=== PATIENT | female | born 1965 | race Caucasian/White ===

== ENCOUNTER → 2016-07-01 | Outpatient (CLI) | payer MEDICAID ==
[~2016-07-01] MED LIST: AMLO5TAB PO; AMLODIPINE5 M1 PO; ASPIRIN 81MG TA81 MG PO; BACTRIM DS 8001 TAB PO; BISOPROLOL PO; DOLOBID 500MG500 MG PO; FLEXERIL5 MG PO; LASIX20 MG PO; LISINOPRIL HCTZ1 TAB PO; NADOLOL 20 MG T20 MG PO; ST. JOSEPH81 M1 PO; TRAZODONE HCL50 MG PO; ULTRAM50 MG PO; VITAMIN D31000 IU PO; [UNRECOGNIZED DRUG - OTHER] PO
== END ==
LOC: RT 10:44
DX: I10 Essential (primary) hypertension (principal); I25.10 Atherosclerotic heart disease of native coronary artery without angina pectoris; Z95.5 Presence of coronary angioplasty implant and graft; E78.5 Hyperlipidemia, unspecified; F17.290 Nicotine dependence, other tobacco product, uncomplicated

== ENCOUNTER → 2016-07-02 | Outpatient (CLI) | payer MEDICAID ==
--- NOTE | 2016-07-02 16:18 | RADIOLOGY REPORT PS360 ---
ECHO ADULT PROCEDURE: 2-D echo Doppler and M-mode INDICATIONS FOR THE TEST: Chest pain, COPD, shortness of breath history of syncope hyperlipidemia chronic tobacco use PATIENT INFORMATION HEIGHT: WEIGHT: GENDER: B/P:122/71 2-D/M-MODE INTERPRETATION: 2-D MEASUREMENTS OBSERVED VALUES IN CMS Right Ventricular Dimension (RVDd) 2.2 Interventricular Septum (Thickness)(IVsd) .9 Left Ventricular Internal Dimensions(LVIDd) 5.3 Left Ventricular Posterior Wall (Thickness)(LVPWd) 1.0 Aortic Root 2.0 Aortic Cusp Separation 2.1 Left Atrial Dimensions (LAD) 3.3 2D: 1. Left atrium is qualitatively mildly enlarged. 2. The left ventricle is normal size, there is mild 1 diastolic concentric left ventricular hypertrophy present, visually estimated ejection fraction at approximately 40-45%, there appears to be marked hypokinesis involving the basal septum and inferobasal wall, endocardial surfaces are somewhat poorly visualized. 3. The aortic valve is minimally thickened and fibrosed, there is no aortic stenosis. 4. Mitral valve has mild mitral calcification there is no mitral stenosis. 5. Pulmonic valve is not well visualized. 6. The tricuspid valve is structurally normal. 7. No significant pericardial effusion seen. DOPPLER INTERROGATION: Doppler interrogation of the aortic mitral tricuspid and pulmonic valve reveals following 1. The aortic out flow velocities within normal range, there is no aortic stenosis or aortic insufficiency. 2. The mitral inflow velocity within normal range, there is no mitral stenosis, there is trace mitral regurgitation, the mitral inflow and tissue Doppler is indicative of grade 1 diastolic dysfunction with normal left atrial pressure. 3. There is mild tricuspid regurgitation, tricuspid regurgitation jet velocity is insufficient for calculation of the right ventricular systolic pressure. CONCLUSION: 1. Mildly enlarged left atrium, normal left ventricular size visually estimated ejection fraction approximately 40-45% with segmental wall motion abnormality described above, grade 1 diastolic dysfunction with normal left atrial pressure. 2. Mild tricuspid regurgitation, tricuspid regurgitation jet velocity insufficient for calculation of the right ventricular systolic pressure. 3. No significant pericardial effusion noted.
== END ==
LOC: RT 13:00
DX: I25.10 Atherosclerotic heart disease of native coronary artery without angina pectoris (principal); I10 Essential (primary) hypertension; E78.5 Hyperlipidemia, unspecified; Z95.5 Presence of coronary angioplasty implant and graft; F17.290 Nicotine dependence, other tobacco product, uncomplicated

== ENCOUNTER 2016-07-23 06:42 | Day surgery (SDC) | payer MEDICAID ==
[~2016-07-23] VITALS: Ht 163.8 cm; Wt 64.0 kg
[2016-07-23 07:30] LABS: HEMOGLOBIN 14.8 g/dL (12.2-16.2); LYMPH # 2.5 K/mm3 (0.7-4.5); LYMPH % 34.9 % (10-50.0)
--- NOTE | 2016-07-23 11:41 | RADIOLOGY REPORT PS360 ---
CHEST-PORTABLE HISTORY: CHECK PACEMAKER PLACEMENT ORDERING PHYSICIAN: Toi Jeong MD PATIENT AGE: 51 years COMPARISON: [id number] FINDINGS: Bipolar cardiac pacemaker device is present from a left subclavian approach. Pacer wires appear in good position. No evidence of pneumothorax. Normal heart size. Lungs are clear. IMPRESSION: Status post cardiac pacemaker insertion as described above, no acute finding
--- NOTE | 2016-07-23 11:41 | RADIOLOGY REPORT PS360 ---
CHEST-PORTABLE HISTORY: CHECK PACEMAKER PLACEMENT ORDERING PHYSICIAN: Toi Jeong MD PATIENT AGE: 51 years COMPARISON: [id number] FINDINGS: Bipolar cardiac pacemaker device is present from a left subclavian approach. Pacer wires appear in good position. No evidence of pneumothorax. Normal heart size. Lungs are clear. IMPRESSION: Status post cardiac pacemaker insertion as described above, no acute finding
[2016-07-23 13:41] VITALS: BP 136/85
--- NOTE | 2016-07-23 15:24 | RADIOLOGY REPORT PS360 ---
PACEMAKER/DEFIBRILLATOR COMPARISON: None HISTORY: Pacemaker insertion FINDINGS: 1 images submitted with the C-arm was obtained during pacemaker insertion available for review IMPRESSION: Status post bipolar pacemaker insertion
--- NOTE | 2016-07-31 09:10 | Operative Note ---
See Addendum Pacemaker Procedure performed: Pacemaker placement Date of procedure: 07/23/16 Time: 1000 Preoperative Diagnosis: Sinus Node dysfunction with marked bradycardia Indication for test: See above Complications: None EBL Less than 10 ml Technique: 1% Lidocaine with epinephrine used to anesthetize the left anterior aspect of the chest.Scalpel was used to make the initial cutaneous incision while electrocautery was used to dissect down into the fascia. The fascia was lifted off the pectoralis muscle and digitally manipulated creating a pocket for the pacemaker. The patient was then placed in Trendelenburg position and the subclavian vein was accessed via the Selinger technique. A 7 Chinese sheath was placed under fluoroscopic guidance into the subclavian vein. Following this, an additional wire was placed into the sheath. Now, with two wires inside the 7 Chinese sheath, this sheath was removed, maintaining the two wires in the subclavian vein. The sheath and dilator was then placed over one of the wires while keeping the other wire in place within the subclavian vein. The dilator was removed from the sheath. Using fluoroscopic guidance, the ventricular lead was placed into the right ventricular apex, screwed and secured into place. Electronic interrogation proved acceptable thresholds and voltage within the lead. Using 3-0 silk, the ventricular lead was then secured into place. Lead was secured to the fascia using the 3-0 silk. Following this, the sheath was pealed away. An additional 7 Chinese fresh sheath and dilator was placed over the existing wire. Using fluoroscopic guidance, the atrial lead was then placed into the right atrial appendage and screwed and secured in place. Electrical interrogation demonstrated acceptable thresholds and voltage numbers. The atrial lead was then secured into place using 3-0 silk and then the lead was finally secured to the fascia. With both the atria and ventricular leads in place with acceptable thresholds and sensitivity, the atrial and ventricular leads were placed into the pacemaker generator. Pacemaker generator was then secured to the fascia using 3-0 silk. 1 gram of Ancef was used to flush the pocket. Following the pacemaker being secured to the fascia and in place, Monocryl was used to close the subcutaneous layers while moraima were used to close the cutaneous layer. A pressure dressing was placed and the patient was transferred to the postop holding area in stable condition for postoperative care. Impression: Procedure 1. Pocket formation for PPM. 2. Placement of atrial sensing and pacing coil into the right atrial appendage. 3. Placement of ventricular sensing and pacing coil in the right ventricular apex. 4. Permanent PPM placement. Successful Permanent Pacemaker Implantation Interrogation: Generator [employer] Model # [id number] Serial # [id number] RA Model # [id number] Serial # [id number] P-wave Impedance Threshold Pulse Width mA RVA Model # [id number] Serial # [id number] R-wave Impedance Threshold Pulse Width mA Pacing Parameters: Mode: Base/Max Track: Max Sensor Therapies: Plan: Routine post pacemaker insertion. at 1206
--- NOTE | 2016-07-31 09:10 | Operative Note ---
See Addendum Pacemaker Procedure performed: Pacemaker placement Date of procedure: 07/23/16 Time: 1000 Preoperative Diagnosis: Sinus Node dysfunction with marked bradycardia Indication for test: See above Complications: None EBL Less than 10 ml Technique: 1% Lidocaine with epinephrine used to anesthetize the left anterior aspect of the chest.Scalpel was used to make the initial cutaneous incision while electrocautery was used to dissect down into the fascia. The fascia was lifted off the pectoralis muscle and digitally manipulated creating a pocket for the pacemaker. The patient was then placed in Trendelenburg position and the subclavian vein was accessed via the Selinger technique. A 7 Kazakh sheath was placed under fluoroscopic guidance into the subclavian vein. Following this, an additional wire was placed into the sheath. Now, with two wires inside the 7 Kazakh sheath, this sheath was removed, maintaining the two wires in the subclavian vein. The sheath and dilator was then placed over one of the wires while keeping the other wire in place within the subclavian vein. The dilator was removed from the sheath. Using fluoroscopic guidance, the ventricular lead was placed into the right ventricular apex, screwed and secured into place. Electronic interrogation proved acceptable thresholds and voltage within the lead. Using 3-0 silk, the ventricular lead was then secured into place. Lead was secured to the fascia using the 3-0 silk. Following this, the sheath was pealed away. An additional 7 Kazakh fresh sheath and dilator was placed over the existing wire. Using fluoroscopic guidance, the atrial lead was then placed into the right atrial appendage and screwed and secured in place. Electrical interrogation demonstrated acceptable thresholds and voltage numbers. The atrial lead was then secured into place using 3-0 silk and then the lead was finally secured to the fascia. With both the atria and ventricular leads in place with acceptable thresholds and sensitivity, the atrial and ventricular leads were placed into the pacemaker generator. Pacemaker generator was then secured to the fascia using 3-0 silk. 1 gram of Ancef was used to flush the pocket. Following the pacemaker being secured to the fascia and in place, Monocryl was used to close the subcutaneous layers while moraima were used to close the cutaneous layer. A pressure dressing was placed and the patient was transferred to the postop holding area in stable condition for postoperative care. Impression: Procedure 1. Pocket formation for PPM. 2. Placement of atrial sensing and pacing coil into the right atrial appendage. 3. Placement of ventricular sensing and pacing coil in the right ventricular apex. 4. Permanent PPM placement. Successful Permanent Pacemaker Implantation Interrogation: Generator [employer] Model # [id number] Serial # [id number] RA Model # [id number] Serial # [id number] P-wave Impedance Threshold Pulse Width mA RVA Model # [id number] Serial # [id number] R-wave Impedance Threshold Pulse Width mA Pacing Parameters: Mode: Base/Max Track: Max Sensor Therapies: Plan: Routine post pacemaker insertion. at 1206
== END 2016-07-23 12:50 | disposition home or self-care (01) ==
LOC: SDC 06:42
PROVIDERS: Internal Medicine
PROC: 02H63JZ Insertion of Pacemaker Lead into Right Atrium, Percutaneous Approach (ICD-10-PCS; 2016-07-23)
PROC: 02HK3JZ Insertion of Pacemaker Lead into Right Ventricle, Percutaneous Approach (ICD-10-PCS; 2016-07-23)
PROC: 0JH606Z Insertion of Pacemaker, Dual Chamber into Chest Subcutaneous Tissue and Fascia, Open Approach (ICD-10-PCS; principal; 2016-07-23 08:00)
DX: I49.5 Sick sinus syndrome (principal); Z45.02 Encounter for adjustment and management of automatic implantable cardiac defibrillator; R00.1 Bradycardia, unspecified; I10 Essential (primary) hypertension
CPT/HCPCS: C1785; C1898; J2405

== ENCOUNTER → 2016-12-08 | Day surgery (SDC) | payer MEDICAID ==
[2016-12-08 08:23] LABS: BUN 15 mg/dL (7-18); GFR (ESTIMATED) 66 ML/MIN (59-)
[2016-12-08 08:25] LABS: HEMOGLOBIN 14.4 g/dL (12.2-16.2); LYMPH % 27.7 % (10-50.0)
--- NOTE | 2016-12-08 10:34 | RADIOLOGY REPORT PS360 ---
CARDIAC CATHETERIZATION DATE OF CATHETERIZATION:12/08/2016 10:15 AM PROCEDURES: 1. Left heart catheterization 2. Left ventriculogram 3. Selective coronary angiogram 4. Left femoral arterial access 5. Right femoral arterial access 6. Catheter placement in the abdominal aorta 7. Abdominal aortography 8. Bare-metal stent deployment to the right common iliac artery 9. Bilateral iliofemoral runoff status post stent deployment INDICATION FOR TEST: 1. Systolic congestive heart failure ejection fraction 25% 2. Peripheral artery disease 3. [place] class III claudication 4. Severe peripheral artery disease Informed consent was obtained prior to the procedure. COMPLICATIONS: None ESTIMATED BLOOD LOSS: Less than 10 ml. TECHNIQUE: One percent lidocaine was used to anesthetize the right groin. The right femoral artery was severely diminished therefore one percent lidocaine was used to anesthetize the left groin. Left femoral artery was accessed via the Seldinger technique and a 4 Greenlandic sheath was placed in the left femoral artery. A JL 4 JR4 catheter were used to perform left heart catheterization left ventriculogram and selective coronary angiography. At the end of the diagnostic heart catheter the pigtail catheter was placed in the abdominal aorta and abdominal aortography was performed. The catheter was then repositioned and bilateral iliofemoral angiography was performed. At this point the right femoral artery was then accessed via the Seldinger technique and a 6 Greenlandic sheath was placed in the right femoral artery. 6000 units of heparin was administered intravenously and an advantage wire was used to traverse the severe stenosis in the right common iliac artery. Following this a 9 mm x 29 mm bare-metal Lao stent was deployed at 12 talat reducing the stenosis to less than 10%. Following this bilateral iliofemoral runoff to the feet was then performed. The closing ACT was 372 seconds. At the end of the procedure the apparatus was removed the right femoral groin was reprepped gloves were changed sheath was removed good hemostasis was achieved using Perclose device patient transferred the postop holding area in stable condition for left femoral sheath removal. ANGIOGRAPHIC RESULTS: 1. The left main artery normal 2. The left anterior descending artery has a stent in the ostial proximal segment which is widely patent free of in-stent restenosis with excellent transitioning proximally and distally. The mid segment has a 40-50% stenosis immediately after the second diagonal artery 3. The ramus intermedius is a medium-size 2.25 mm vessel and has proximal sequential 70% stenoses 4. The circumflex artery nondominant normal 5. The right coronary artery is a dominant vessel and has a stent in the ostial proximal mid segment which is widely patent free of in-stent restenosis with excellent transitioning distally. The very distal vessel has sequential 20% stenoses. The posterior descending artery is a large vessel and has 20% proximal mid vessel stenoses 6. The BAUER ventriculogram reveals left ventricular dilatation with ejection fraction of 25-30% 7. The left ventricular end-diastolic pressure 15 mmHg 8. The suprarenal abdominal aorta is normal with normal mesenteric arteries 9. The right renal artery singular and has an ostial proximal 20-30% stenosis 10. The left renal artery singular and has an ostial 80-90% stenosis 11. The infrarenal abdominal aorta is hypoplastic with diffuse 30% calcifications. 12. The right common iliac artery has a proximal concentric 90% stenosis with poststenotic dilatation while the external iliac artery and right common femoral artery are angiographically normal. Right internal iliac arteries normal 13. The left common iliac artery has an ostial 10-20% stenosis while the internal and external iliac arteries are normal as is the left femoral artery 14. The bilateral profunda femoris arteries are normal 15. The right superficial femoral artery has mild proximal luminal irregularities with a mid vessel concentric 40-50% focal stenosis. The popliteal artery has mild atheromatous plaque. 16. The right anterior tibialis artery is proximally patent and appears to be patent throughout its entire course while the peroneal artery has slow flow in the proximal segment and then appears to be occluded at mid to distal calf segment. The posterior tibialis artery is occluded at mid segment. There is single-vessel runoff below the mid calf into the ankle from the anterior tibialis artery 17. The left superficial femoral artery has a mid vessel 50-60% concentric stenosis while the popliteal artery has mild luminal irregularities. 18. The left anterior tibialis artery is proximally occluded while the peroneal artery is patent in the proximal segment and then occludes at mid segment. There is single-vessel runoff below the knee on the left side IMPRESSION: 1. Coronary artery disease as described above 2. Systolic congestive heart failure 3. Severe left renal artery stenosis 4. Severe right common iliac artery stenosis 5. Successful stenting of the right common iliac artery severe disease reduced to less than 10% with 1 bare-metal stent 6. Moderate bilateral SFA disease 7. Severe disease below the knee with single vessel runoff bilaterally PLAN: 1. Standard therapy for systolic heart failure 2. Patient requires an up grade from a pacemaker to an AICD because of her systolic heart failure 3. Aggressive risk factor modification 4. Aspirin and Plavix 5. LDL less than 55 to be achieved with high intensity statin 6. Cardiac rehabilitation 7. Avoidance of tobacco products 8. The time being I would treat the left renal artery stenosis medically unless patient develops worsening renal function or recalcitrant hypertension
[2016-12-08 12:45] LABS: URINE BILIRUBIN - DIPSTICK NEGATIVE (NEG); URINE BLOOD TRACE-INTACT (NEG)
[2016-12-08 15:37] VITALS: BP 135/81
== END ==
LOC: CATHLAB 07:46
PROVIDERS: Internal Medicine
PROC: B2111ZZ Fluoroscopy of Multiple Coronary Arteries using Low Osmolar Contrast (ICD-10-PCS; 2016-12-08)
PROC: B2151ZZ Fluoroscopy of Left Heart using Low Osmolar Contrast (ICD-10-PCS; 2016-12-08)
PROC: B41D1ZZ Fluoroscopy of Aorta and Bilateral Lower Extremity Arteries using Low Osmolar Contrast (ICD-10-PCS; 2016-12-08)
PROC: 047C3DZ Dilation of Right Common Iliac Artery with Intraluminal Device, Percutaneous Approach (ICD-10-PCS; 2016-12-08)
PROC: 4A023N7 Measurement of Cardiac Sampling and Pressure, Left Heart, Percutaneous Approach (ICD-10-PCS; principal; 2016-12-08 09:00)
DX: I25.10 Atherosclerotic heart disease of native coronary artery without angina pectoris (principal); Z95.818 Presence of other cardiac implants and grafts; I50.20 Unspecified systolic (congestive) heart failure; I70.203 Unspecified atherosclerosis of native arteries of extremities, bilateral legs
CPT/HCPCS: C1725; C1760; C1769; C1876; C1894; J1644; J2720; Q9966; Q9967

== ENCOUNTER → 2017-03-23 | Outpatient (CLI) | payer MEDICAID | LOC: LAB 09:52 | PROVIDERS: Internal Medicine Cardiovascular Disease | DX: I25.10 Atherosclerotic heart disease of native coronary artery without angina pectoris (principal); I73.9 Peripheral vascular disease, unspecified; I10 Essential (primary) hypertension; E78.5 Hyperlipidemia, unspecified; E70.1 Other hyperphenylalaninemias; Z95.810 Presence of automatic (implantable) cardiac defibrillator ==

== ENCOUNTER → 2017-04-06 | Outpatient (CLI) | payer MEDICAID ==
[2017-04-06 13:34] LABS: BUN 14 mg/dL (7-18)
[2017-04-06 13:40] LABS: GFR (ESTIMATED) 75 ML/MIN (59-)
== END ==
LOC: LAB 12:12
PROVIDERS: Internal Medicine
DX: E78.1 Pure hyperglyceridemia (principal); E78.5 Hyperlipidemia, unspecified; I25.10 Atherosclerotic heart disease of native coronary artery without angina pectoris

== ENCOUNTER → 2017-04-19 | Outpatient (CLI) | payer MEDICAID ==
[2017-04-19 11:43] LABS: FASTING URINE GLUCOSE NEGATIVE
[2017-04-19 13:55] LABS: 1 HR URINE GLUCOSE NEGATIVE mg/ml
[2017-04-19 15:07] LABS: 2 HR URINE GLUCOSE NEGATIVE mg/ml
== END ==
LOC: LAB 11:04
PROVIDERS: Internal Medicine
DX: E78.5 Hyperlipidemia, unspecified (principal)